=== PATIENT | male | born 1960 | race Asian ===

== ENCOUNTER 2020-03-25 19:07 | Emergency (ER) | payer MEDICAID ==
[~2020-03-25] VITALS: Ht 162.6 cm; Wt 58.5 kg
[~2020-03-25 19:07] MED LIST: FENT1PAT13 TD; HYDR-4353 PO; METH-603 PO
[2020-03-25] MEDS ORDERED: HYDROcodone/acetaminophen 5mg/325mg tablet PO ONE (19:35)
[2020-03-25] MEDS ORDERED: ACET-3067 PO (19:36)
[2020-03-25] MEDS ORDERED: CYCL-1 PO (19:36)
[2020-03-25 19:47] VITALS: BP 150/74
== END 2020-03-25 19:40 | disposition home or self-care (01) ==
LOC: ER 19:08
DX: S39.012A Strain of muscle, fascia and tendon of lower back, initial encounter (principal); G89.29 Other chronic pain; Z98.890 Other specified postprocedural states; Z72.89 Other problems related to lifestyle; Z86.73 Personal history of transient ischemic attack (TIA), and cerebral infarction without residual deficits; Z88.6 Allergy status to analgesic agent; Z79.899 Other long term (current) drug therapy; V87.7XXA Person injured in collision between other specified motor vehicles (traffic), initial encounter; Y93.89 Activity, other specified; Y92.488 Other paved roadways as the place of occurrence of the external cause; Y99.8 Other external cause status
CPT/HCPCS: 99283

== ENCOUNTER 2021-02-17 11:59 | Emergency (ER) | payer MEDICAID ==
[~2021-02-17] VITALS: Ht 162.6 cm; Wt 59.3 kg
[~2021-02-17 11:59] MED LIST changes: +CYCL-1 PO
[2021-02-17 12:38] VITALS: BP 219/101
[2021-02-17 13:11] LABS: BASOPHILS # (AUTO) 0.1 X10'3 (0-0.2); BASOPHILS % (AUTO) 0.7 % (0-1); EOSINOPHILS # (AUTO) 0.2 X10'3 (0-0.9); EOSINOPHILS % (AUTO) 2.5 % (0-6); HEMATOCRIT 44.2 % (42.0-52.0); HEMOGLOBIN 14.4 g/dl (14.0-17.9); LYMPHOCYTES # (AUTO) 3.2 X10'3 (1.1-4.8); LYMPHOCYTES % (AUTO) 43.5 % (21-51); MEAN CORPUSCULAR HEMOGLOBIN 26.8 PG (27.0-31.0); MEAN CORPUSCULAR HGB CONC 32.5 g/dL (33.0-36.5); MEAN CORPUSCULAR VOLUME 82.5 FL (78-98); MEAN PLATELET VOLUME 8.1 FL (7.4-10.4); MONOCYTES # (AUTO) 0.4 X10'3 (0-0.9); MONOCYTES % (AUTO) 5.7 % (2-12); NEUTROPHILS # (AUTO) 3.5 X10'3 (1.8-7.7); NEUTROPHILS % (AUTO) 47.6 % (42-75); PLATELET COUNT 191 X10'3 (140-440); RED BLOOD COUNT 5.36 X10'6 (4.70-6.10); WHITE BLOOD COUNT 7.4 X10'3 (4.5-11.0)
[2021-02-17 13:31] LABS: ALANINE AMINOTRANSFERASE 23 U/L (12-78); ALBUMIN 3.8 G/DL (3.4-5.0); ALBUMIN/GLOBULIN RATIO 0.9 (1.1-1.5); ALKALINE PHOSPHATASE 87 IU/L (46-116); ANION GAP 12 (8-16); ASPARTATE AMINO TRANSFERASE 22 U/L (10-37); BILIRUBIN,TOTAL 0.3 MG/DL (0.1-1.0); BLOOD UREA NITROGEN 11 MG/DL (7-18); BUN/CREATININE RATIO 14.1 (5.4-32.0); CALCIUM 9.7 MG/DL (8.5-10.1); CHLORIDE 107 MMOL/L (99-107); CREATININE 0.78 MG/DL (0.60-1.10); GLUCOSE 87 MG/DL (70-104); POTASSIUM 3.8 MMOL/L (3.5-5.1); SODIUM 147 MMOL/L (135-145); TOTAL CARBON DIOXIDE 28.4 MMOL/L (24-32); TOTAL PROTEIN 8.2 G/DL (6.4-8.2); eGFR > 90 ML/MIN
== END 2021-02-17 14:18 | disposition home or self-care (01) ==
LOC: ER 12:00
DX: I10 Essential (primary) hypertension (principal); G89.29 Other chronic pain; Z72.89 Other problems related to lifestyle; Z98.890 Other specified postprocedural states; Z86.73 Personal history of transient ischemic attack (TIA), and cerebral infarction without residual deficits; Z88.6 Allergy status to analgesic agent; Z79.899 Other long term (current) drug therapy
CPT/HCPCS: 36415; 71045; 80053; 83880; 84484; 85025; 93005; 99285

== ENCOUNTER 2023-11-10 13:45 | Emergency (ER) | payer MEDICAID ==
[~2023-11-10] VITALS: Ht 162.6 cm; Wt 62.4 kg
[2023-11-10 13:51] VITALS: BP 138/69; PULSE 55; RESP 16; TEMP 98.7; O2SAT 98
[2023-11-10] MEDS ORDERED: CYCL-1 PO (15:59)
[2023-11-10] MEDS ORDERED: PRED20TA PO (15:59)
[2023-11-10] MEDS ORDERED: ketorolac trometh inj. 60 MG/2 ML VIAL IM ONE (16:00)
== END 2023-11-10 16:12 | disposition home or self-care (01) ==
LOC: ER 13:45
DX: S39.012A Strain of muscle, fascia and tendon of lower back, initial encounter (principal); G89.29 Other chronic pain; I10 Essential (primary) hypertension; Z72.89 Other problems related to lifestyle; Z86.73 Personal history of transient ischemic attack (TIA), and cerebral infarction without residual deficits; Z88.8 Allergy status to other drugs, medicaments and biological substances; Z79.899 Other long term (current) drug therapy; X58.XXXA Exposure to other specified factors, initial encounter; Y93.89 Activity, other specified; Y92.89 Other specified places as the place of occurrence of the external cause; Y99.8 Other external cause status
CPT/HCPCS: 96372; 99283; J1885